=== PATIENT | female | born 1980 | race Two or more races ===

== ENCOUNTER 2019-10-09 10:39 | Outpatient (CLI) | payer OTHER | END 2019-10-09 10:50 | disposition home or self-care (01) | LOC: RAD 10:39 → MAMO-SONO 10:45 → RAD 10:50 | PROVIDERS: ATTEND Physical Medicine & Rehabilitation | DX: M75.122 Complete rotator cuff tear or rupture of left shoulder, not specified as traumatic (principal); M75.32 Calcific tendinitis of left shoulder ==

== ENCOUNTER 2019-10-26 08:16 | Outpatient (CLI) | payer OTHER | END 2019-10-26 08:26 | disposition home or self-care (01) | LOC: MRI 08:16 | PROVIDERS: ATTEND Physical Medicine & Rehabilitation | DX: M75.122 Complete rotator cuff tear or rupture of left shoulder, not specified as traumatic (principal) | CPT/HCPCS: 73221 ==

== ENCOUNTER → 2021-07-26 | Emergency (ER) | payer OTHER ==
[~2021-07-26] VITALS: Ht 167.6 cm; Wt 59.0 kg
== END | disposition left against medical advice (07) ==
LOC: ER 21:50
DX: Z20.822 Contact with and (suspected) exposure to COVID-19 (principal)